=== PATIENT | female | born 2005 | race Caucasian/White ===

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

== ENCOUNTER 2023-05-09 03:51 | Emergency (ER) | payer BC ==
[2023-05-09 04:07] VITALS: RESP 18
--- NOTE | 2023-05-09 04:50 | ED ---
SOB HPI - General Chief Complaint: Shortness of Breath Stated Complaint: SOB COVID+ Time Seen by Provider: 05/09/23 04:38 Source: EMS Mode of arrival: EMS Limitations: no limitations - History of Present Illness Initial Comments: Patient is a 17-year-old woman presenting to have reevaluation for cough, wheezing, dyspnea as well as myalgias. She had been seen at a clinic and found to have COVID-19 infection. She was prescribed medication has not had chance to start these yet. MD Complaint: shortness of breath, cough -: days(s) Quality: aching Consistency: constant Improves With: nothing Worsens With: nothing Associated Symptoms: cough Treatments Prior to Arrival: none - Related Data Home Medications Medication Instructions Recorded Confirmed norgestimate-ethinyl estradioL See Rx Instructions .ROUTE .COMPLEX 09/26/22 09/26/22 [Susana 0.25-0.035 mg Tablet] Previous Rx's Medication Instructions Recorded buPROPion XL [Wellbutrin XL] 150 mg PO DAILY 30 Days #30 tab 09/27/22 Fluconazole [Diflucan] 150 mg PO ONCE #1 tab 05/09/23 Nirmatrelvir/Ritonavir [Paxlovid 1 each PO ONCE #1 pack 05/09/23 2X150 mg-100 mg (Eua)] Allergies Allergy/AdvReac Type Severity Reaction Status Date / Time No Known Allergies Allergy Verified 05/09/23 03:55 Review of Systems ROS Statement: Those systems with pertinent positive or pertinent negative responses have been documented in the HPI. ROS Other: All systems not noted in ROS Statement are negative. Constitutional: Reports: fever, weakness Respiratory: Reports: cough, dyspnea Cardiovascular: Denies: chest pain, palpitations, edema, syncope Gastrointestinal: Denies: abdominal pain, vomiting, diarrhea Genitourinary: Denies: dysuria, hematuria Musculoskeletal: Reports: myalgia Skin: Denies: rash Neurological: Reports: headache. Denies: weakness, numbness, confusion Past Medical History Past Medical History: No Reported History Additional Past Medical History / Comment(s): depression History of Any Multi-Drug Resistant Organisms: None Reported Past Surgical History: Adenoidectomy Past Psychological History: Anxiety, Depression Smoking Status: Never smoker Past Alcohol Use History: None Reported Past Drug Use History: None Reported - Past Family History Father Family Medical History: Hyperlipidemia General Exam Limitations: no limitations General appearance: alert, in no apparent distress Head exam: Present: atraumatic, normocephalic Eye exam: Present: normal appearance. Absent: scleral icterus, conjunctival injection ENT exam: Present: normal oropharynx Neck exam: Present: normal inspection Respiratory exam: Present: wheezes. Absent: respiratory distress, rales, rhonchi, stridor Cardiovascular Exam: Present: regular rate, normal rhythm, normal heart sounds. Absent: systolic murmur, diastolic murmur, rubs, gallop GI/Abdominal exam: Present: soft. Absent: distended, tenderness, guarding, rebound, rigid, mass Extremities exam: Present: normal inspection, normal capillary refill. Absent: pedal edema, calf tenderness Back exam: Present: normal inspection. Absent: CVA tenderness (R), CVA tenderness (L) Neurological exam: Present: alert Skin exam: Present: warm, dry, intact, normal color. Absent: rash Course Vital Signs 05/09/23 05/09/23 05/09/23 03:55 04:59 06:20 Temperature 97.9 F 98.2 F Pulse Rate 89 88 Respiratory 18 18 18 Rate Blood Pressure 114/79 118/83 O2 Sat by Pulse 96 99 Oximetry 05/09/23 07:20 Temperature 98.1 F Pulse Rate 86 Respiratory 18 Rate Blood Pressure 115/73 O2 Sat by Pulse 99 Oximetry Medical Decision Making - Medical Decision Making The patient had chest x-ray which I interpreted as negative for acute infiltrate, pneumothorax, congestive heart failure Was pt. sent in by a medical professional or institution (, PA, DINING ROOM ATTENDANT [employer], urgent care, hospital, or custodial...) When possible be specific @ -[No] Did you speak to anyone other than the patient for history (EMS, parent, family, police, friend...)? What history was obtained from this source @ -[No] Did you review nursing and triage notes (agree or disagree)? Why? @ -[I reviewed and agree with nursing and triage notes] Were old charts reviewed (outside hosp., previous admission, EMS record, old EKG, old radiological studies, urgent care reports/EKG's, custodial records)? Report findings @ -[No old charts were reviewed] Differential Diagnosis (chest pain, altered mental status, abdominal pain women, abdominal pain men, vaginal bleeding, weakness, fever, dyspnea, syncope, headache, dizziness, GI bleed, back pain, seizure, CVA, palpatations, mental health, musculoskeletal)? @ -[Differential Dyspnea: Coronary syndrome, arrhythmia, tamponade, asthma, COPD, pulmonary embolism, pneumonia, pneumothorax, pulmonary effusion, anaphylaxis, diabetic ketoacidosis, flailed chest, pulmonary contusion, diaphragmatic rupture, anemia, neuromuscular, this is not meant to be an all-inclusive list. EKG interpreted by me (3pts min.). @ -[As above] X-rays interpreted by me (1pt min.). @ -[I interpreted as above CT interpreted by me (1pt min.). @ -[None done] U/S interpreted by me (1pt. min.). @ -[None done] What testing was considered but not performed or refused? (CT, X-rays, U/S, labs)? Why? @ -[None] What meds were considered but not given or refused? Why? @ -[None] Did you discuss the management of the patient with other professionals (professionals i.e. , PA, DINING ROOM ATTENDANT [place], lab, RT, psych nurse, social science teacher, registered pharmacist, teacher, geographic area intelligence officer, catalytic case operator)? Give summary @ -[No] Was smoking cessation discussed for >3mins.? @ -[No] Was critical care preformed (if so, how long)? @ -[No] Were there social determinants of health that impacted care today? How? (Homelessness, low income, unemployed, alcoholism, drug addiction, transportation, low edu. Level, literacy, decrease access to med. care, usp, rehab)? @ -[No] Was there de-escalation of care discussed even if they declined (Discuss DNR or withdrawal of care, Hospice)? DNR status @ -[No] What co-morbidities impacted this encounter? (DM, HTN, Smoking, COPD, CAD, Cancer, CVA, ARF, Chemo, Hep., AIDS, mental health diagnosis, sleep apnea, morbid obesity)? @ -[None] Was patient admitted / discharged? Hospital course, mention meds given and route, prescriptions, significant lab abnormalities, going to OR and other pertinent info. @ -[Patient is a 17-year-old woman here to have reevaluation related to cough, wheezing and covid infection. She has not been able to begin the medications prescribed by the clinic yet. Chest x-ray here does not show any acute infiltrate. Discussed appropriate further care and follow-up as well as return parameters. Undiagnosed new problem with uncertain prognosis? @ -[No] Drug Therapy requiring intensive monitoring for toxicity (Heparin, Nitro, Insulin, Cardizem)? @ -[No] Were any procedures done? @ -[No] Diagnosis/symptom? @ -[COVID-19 infection Acute, or Chronic, or Acute on Chronic? @ -[Acute Uncomplicated (without systemic symptoms) or Complicated (systemic symptoms)? @ -[Uncomplicated Side effects of treatment? @ -[No] Exacerbation, Progression, or Severe Exacerbation? @ -[No] Poses a threat to life or bodily function? How? (Chest pain, [place], [place], pneumonia, PE, COPD, DKA, ARF, appy, cholecystitis, CVA, Diverticulitis, Homicidal, Suicidal, threat to staff... and all critical care pts) @ -[No] Disposition Clinical Impression: COVID-19, Candidiasis of female genitalia Disposition: HOME SELF-CARE Condition: Good Instructions (If sedation given, give patient instructions): Yeast Infection (ED), COVID-19 (Coronavirus Disease 2019) (ED) Prescriptions: Fluconazole [Diflucan] 150 mg PO ONCE #1 tab Nirmatrelvir/Ritonavir [Paxlovid 2X150 mg-100 mg (Eua)] 1 each PO ONCE #1 pack Is patient prescribed a controlled substance at d/c from ED?: No Referrals: Eva Oakes MD [Primary Care Provider] - 1-2 days
--- NOTE | 2023-05-09 07:13 | XR ---
EXAM: XR Chest, 2 Views CLINICAL HISTORY: ITS.REASON XR Reason: shortness of breath TECHNIQUE: Frontal and lateral views of the chest. COMPARISON: No relevant prior studies available. FINDINGS: Lungs: Low lung volumes. No consolidation. Pleural space: Unremarkable. No pneumothorax. Heart: No cardiomegaly. Bones/joints: No acute osseous abnormality. IMPRESSION: No acute findings in the chest.
[2023-05-09 07:34] VITALS: BP 115/73; PULSE 86; TEMP 98.1
== END 2023-05-09 07:22 | disposition home or self-care (01) ==
LOC: EC 03:51
DX: U07.1 COVID-19 (principal); B37.31 Acute candidiasis of vulva and vagina; Z86.59 Personal history of other mental and behavioral disorders
CPT/HCPCS: 71046; 99285

== ENCOUNTER → 2023-08-08 | Outpatient (CLI) | payer BC ==
--- NOTE | 2023-08-08 13:19 | USB ---
Reason for Exam: Clinical finding. Findings: The lower section of the breast of the right breast, the axilla of the right breast and the retroareolar of the right breast were scanned. Targeted ultrasound inferior half right breast 3:00 to 9:00 including scanning of the subareolar region and axilla. The patient indicates the 5:00 position as being the site of lump. Scanning along the entire inferior half shows no solid or cystic lesion. Breast tissue does not appear to be particularly dense. No axillary adenopathy. Overall Assessment: Negative, BI-RAD 1 Management: Screening Mammogram of both breasts at age 38. Unless there is an indication to start sooner. Further clinical management of any suspicious palpable abnormality. Patient can continue monthly self breast exams. Results were given to the patient verbally at the time of exam. Electronically signed and approved by: Sue Humphreys M.D. Radiologist
== END | disposition home or self-care (01) ==
LOC: RADUSWWP 12:41
PROVIDERS: ATTEND Family Medicine
DX: N63.14 Unspecified lump in the right breast, lower inner quadrant (principal)

== ENCOUNTER → 2023-11-14 | Outpatient (CLI) | payer BC ==
--- NOTE | 2023-12-11 10:55 | MR ---
EXAMINATION TYPE: MR wrist LT wo con DATE OF EXAM: 11/14/2023 COMPARISON: Radiograph 06/24/2023 HISTORY: 18-year-old female Left wrist pain, swelling and limited movement since Apr 2023 TECHNIQUE: Multiplanar, multisequence images of the left wrist were obtained without IV contrast. FINDINGS: No acute or healing fracture is seen. No abnormal bone marrow replacement or marrow edema. The radiocarpal and distal radial ulnar joint as well as mid carpal compartment appear intact. No sig nificant joint effusion. There is a large multilocular ganglion cyst noted along the dorsal aspect of the wrist/carpus measuri ng 1.5 cm wide by 1.0 cm long by 0.5 cm thick. This seems to show extension from the dorsal aspect of the radioscaphoid joint space. The underlying scapholunate ligament as well as the lunotriquetral ligaments appear intact. An additional tiny 3 mm ganglion cyst noted along the volar aspect of the distal third scaphoid. Minimal anterior subluxation of the ECU with trace tenosynovial fluid. Otherwise, the remaining dorsal extensor and volar flexor tendons appear satisfactory. Normal caliber to the median nerve within the carpal tunnel. The TFC appears intact. IMPRESSION: 1. A sizable multilocular ganglion cyst measuring 1.5 cm along the dorsal aspect of the wrist/carpus. Probably arising from the dorsal aspect of the radioscaphoid joint space. 2. An additional tiny 3 mm ganglion cyst along the volar aspect of the distal third scaphoid. 3. Minimal anterior subluxation of the ECU with trace tenosynovial fluid. If any localizing symptoms here, a mild subsheath sprain can be considered.
== END | disposition home or self-care (01) ==
LOC: RADMRIMAIN 17:00
PROVIDERS: ATTEND Orthopaedic Surgery Hand Surgery
DX: M67.432 Ganglion, left wrist (principal)

== ENCOUNTER 2023-12-05 04:28 | Emergency (ER) | payer BC ==
--- NOTE | 2023-12-05 05:06 | ED ---
General Adult HPI - General Chief complaint: Allergic Reaction Stated complaint: Allergic Reaction Time Seen by Provider: 12/05/23 04:38 Source: patient Mode of arrival: ambulatory Limitations: no limitations - History of Present Illness Initial comments: Dictation was produced using [employer] dictation software. please excuse any grammatical, word or spelling errors. Chief Complaint: 18-year-old female with past medical history of adenomectomy and depression presents to the ER for concerns of allergic reaction to Keflex History of Present Illness: Patient 18-year-old female she states that she is having allergic reaction to Keflex. Patient has never taken Keflex prior to this. She presented to the urgent care 48 hours ago. She took 2 doses of Keflex after being diagnosed with UTI. She states 1 hour after the initial dose she started to feel little itchy. She took the second dose and alone p.m. last night and started to feel throat pain and hives. Patient does not have any allergic reactions to drugs. Patient abdominal pain. No nausea vomiting The ROS documented in this emergency department record has been reviewed and confirmed by me. Those systems with pertinent positive or negative responses have been documented in the HPI. All other systems are other negative and/or noncontributory. - Related Data Home Medications Medication Instructions Recorded Confirmed norgestimate-ethinyl estradioL See Rx Instructions .ROUTE .COMPLEX 09/26/22 09/26/22 [Susana 0.25-0.035 mg Tablet] Previous Rx's Medication Instructions Recorded buPROPion XL [Wellbutrin XL] 150 mg PO DAILY 30 Days #30 tab 09/27/22 Fluconazole [Diflucan] 150 mg PO ONCE #1 tab 05/09/23 Nirmatrelvir/Ritonavir [Paxlovid 1 each PO ONCE #1 pack 05/09/23 2X150 mg-100 mg (Eua)] Sulfamethox-Tmp 800-160Mg [Bactrim 1 tab PO Q12HR 3 Days #6 tab 12/05/23 DS 800-160 mg] Allergies Allergy/AdvReac Type Severity Reaction Status Date / Time cephalexin [From Keflex] Allergy Swelling Verified 12/05/23 04:37 Review of Systems ROS Statement: Those systems with pertinent positive or pertinent negative responses have been documented in the HPI. ROS Other: All systems not noted in ROS Statement are negative. Past Medical History Past Medical History: No Reported History Additional Past Medical History / Comment(s): depression History of Any Multi-Drug Resistant Organisms: None Reported Past Surgical History: Adenoidectomy Past Psychological History: Anxiety, Depression Smoking Status: Never smoker Past Alcohol Use History: None Reported Past Drug Use History: None Reported - Past Family History Father Family Medical History: Hyperlipidemia General Exam - General Exam Comments Initial Comments: PHYSICAL EXAM: General Impression: Alert and oriented x3, not in acute distress HEENT: Normocephalic atraumatic, extra-ocular movements intact, pupils equal and reactive to light bilaterally, mucous membranes moist, periorbital edema bilaterally. Cardiovascular: Heart regular rate and rhythm Chest: Able to complete full sentences, no retractions, no tachypnea, no wheezing Abdomen: abdomen soft, non-tender, non-distended, no organomegaly Musculoskeletal: Pulses present and equal in all extremities, no peripheral medina a Motor: no focal deficits noted Neurological: CN II-XII grossly intact, no focal motor or sensory deficits noted Skin: Intact with no visualized rashes Psych: Normal affect and mood Limitations: no limitations Course Vital Signs 12/05/23 04:35 Temperature 98.2 F Pulse Rate 93 Respiratory 18 Rate Blood Pressure 118/76 O2 Sat by Pulse 96 Oximetry Medical Decision Making - Medical Decision Making Was pt. sent in by a medical professional or institution (LONNIE Hutchison, DYE HOUSE WHEEL OPERATOR, urgent care, hospital, or skilled nursing...) When possible be specific @ -No Did you speak to anyone other than the patient for history (EMS, parent, family, police, friend...)? What history was obtained from this source @ -No Did you review nursing and triage notes (agree or disagree)? Why? @ -I reviewed and agree with nursing and triage notes Were old charts reviewed (outside hosp., previous admission, EMS record, old EKG, old radiological studies, urgent care reports/EKG's, skilled nursing records)? Report findings @ -No old charts were reviewed Differential Diagnosis (chest pain, altered mental status, abdominal pain women, abdominal pain men, vaginal bleeding, musculoskeletal, weakness, fever, dyspnea, syncope, headache, dizziness, GI bleed, back pain, seizure, CVA, palpatations, mental health)? @ -Anaphylaxis, angioedema, dermatitis EKG interpreted by me (3pts min.). @ -None done X-rays interpreted by me (1pt min.). @ -None done CT interpreted by me (1pt min.). @ -None done U/S interpreted by me (1pt. min.). @ -None done What testing was considered but not performed or refused? (CT, X-rays, U/S, labs)? Why? @ -None What meds were considered but not given or refused? Why? @ -None Did you discuss the management of the patient with other professionals (professionals i.e. , PA, DYE HOUSE WHEEL OPERATOR, lab, RT, psych nurse, social work professor, acid wash operator, teacher, ordnance officer, casework specialist)? Give summary @ -No Was smoking cessation discussed for >3mins.? @ -No Was critical care preformed (if so, how long)? @ -No Were there social determinants of health that impacted care today? How? (Homelessness, low income, unemployed, alcoholism, drug addiction, transportation, low edu. Level, literacy, decrease access to med. care, usp, rehab)? @ -No Was there de-escalation of care discussed even if they declined (Discuss DNR or withdrawal of care, Hospice)? DNR status @ -No What co-morbidities impacted this encounter? (DM, HTN, Smoking, COPD, CAD, Cancer, CVA, ARF, Chemo, Hep., AIDS, mental health diagnosis, sleep apnea, morbid obesity)? @ -None Was patient admitted / discharged? Hospital course, mention meds given and route, prescriptions, significant lab abnormalities, going to OR and other pertinent info. @ -18-year-old female presents emergency department for allegedly had allergic reaction to Keflex. Symptoms reported are some throat pain along with ur ticarial rash. Vital signs upon arrival are within acceptable limits. She is well-appearing. Symptoms are concerning for borderline anaphylaxis that she has airway involvement and skin involvement. Risk and benefits were discussed regarding administration of IM epinephrine. Patient is agreeable. Patient also given 10 mg of IV Decadron. Noted at bedside at 7:00 AM. States that her rash appears to feel better however she still complaining of some throat pain. Again patient does not appear to be toxic. She has normal phonation. Patient is agreeable for discharge. Advised follow-up with primary care doctor. Patient antibiotics transitioned to Bactrim. She is told to stop taking Keflex. Undiagnosed new problem with uncertain prognosis? @ -No Drug Therapy requiring intensive monitoring for toxicity (Heparin, Nitro, Insulin, Cardizem)? @ -No Were any procedures done? @ -No Diagnosis/symptom? Acute, or Chronic, or Acute on Chronic? Uncomplicated (without systemic symptoms) or Complicated (systemic symptoms)? @ -Allergic reaction Side effects of treatment? @ -No Exacerbation, Progression, or Severe Exacerbation? @ -No Poses a threat to life or bodily function? How? (Chest pain, [place], [place], pneumonia, PE, COPD, DKA, ARF, appy, cholecystitis, CVA, Diverticulitis, Homicidal, Suicidal, threat to staff... and all critical care pts) @ -No - Lab Data Lab Results 12/05/23 12/05/23 Range/Units 05:17 05:17 Urine Color Yellow Urine Appearance Cloudy H (Clear) Urine pH 6.5 (5.0-8.0) Ur Specific [place] 1.030 (1.001-1.035) Urine Protein 1+ H (Negative) Urine Glucose (UA) Negative (Negative) Urine Ketones Negative (Negative) Urine Blood Negative (Negative) Urine Nitrite Negative (Negative) Urine Bilirubin Negative (Negative) Urine Urobilinogen 2.0 (<2.0) mg/dL Ur Leukocyte Esterase Moderate H (Negative) Urine RBC 2 (0-5) /hpf Urine WBC 30 H (0-5) /hpf Ur Squamous Epith Cells 18 H (0-4) /hpf Urine Bacteria Rare H (None) /hpf Urine Mucus Many H (None) /hpf Urine HCG, Qual Not Detected (Not Detectd) Disposition Clinical Impression: Allergic reaction Disposition: HOME SELF-CARE Condition: Fair Instructions (If sedation given, give patient instructions): General Allergic Reaction (ED) Prescriptions: Sulfamethox-Tmp 800-160Mg [Bactrim DS 800-160 mg] 1 tab PO Q12HR 3 Days #6 tab Is patient prescribed a controlled substance at d/c from ED?: No Referrals: Eva Oakes MD [Primary Care Provider] - 1-2 days Time of Disposition: 07:02
[2023-12-05 06:04] LABS: Appearance,Urine Cloudy (Clear); Bacteria,Urine Rare /hpf; Bilirubin,Urine Negative (Negative); Blood,Urine Negative (Negative); Color,Urine Yellow; Glucose,Urine (UA) Negative (Negative); Ketones,Urine Negative (Negative); Leukocyte Esterase,Urine Moderate (Negative); Mucus,Urine Many /hpf; Nitrite,Urine Negative (Negative); PH, Urine 6.5 (5.0-8.0); Protein,Urine 1+ (Negative); RBC,Urine 2 /hpf (0-5); Squamous Epithelial Cell,Urine 18 /hpf (0-4); WBC,Urine 30 /hpf (0-5)
[2023-12-05] MEDS: DEXAMETHASONE SOD PHOSPHATE 10 MG/ML 1 ML VIAL IV STA (06:17)
[2023-12-05 07:22] VITALS: BP 143/74; PULSE 87; RESP 17; TEMP 98.5
== END 2023-12-05 07:22 | disposition home or self-care (01) ==
LOC: EC 04:28
DX: L29.9 Pruritus, unspecified (principal); T36.1X5A Adverse effect of cephalosporins and other beta-lactam antibiotics, initial encounter; Z88.1 Allergy status to other antibiotic agents
CPT/HCPCS: 81001; 81025; 99283; 96374; 96372; J0171; J1100

== ENCOUNTER 2023-12-05 22:11 | Emergency (ER) | payer BC ==
[2023-12-05 23:03] VITALS: TEMP 98.4
--- NOTE | 2023-12-05 23:56 | ED ---
General Adult HPI - General Source: patient, RN notes reviewed Mode of arrival: ambulatory Limitations: no limitations <Macrina Azul - Last Filed: 12/06/23 00:35> <Lolly Mckinney - Last Filed: 12/06/23 02:25> - General Chief complaint: Allergic Reaction Stated complaint: Hives,itchy throat-seen earlier today Time Seen by Provider: 12/05/23 23:13 - History of Present Illness Initial comments: 18-year-old female presents to the emergency department for evaluation of hives. Patient states that last night she believes she developed an allergic reaction to Keflex and had a swelling to both of her eyes. She also reported symptoms of irritation and feeling of foreign body sensation in her throat at that time. She was administered epinephrine and Decadron at that time. She had improvement in her symptoms after this. She states that she was switched to Bactrim and took her first dose around 1:30 PM today. She has not taken any further doses of this medication. She reports that this evening at around 9 PM she developed itching and a rash to her trunk, bilateral upper and lower extremities. She does state that she took loratadine at around 9:30 PM for this. (Macrina Azul) - Related Data Home Medications Medication Instructions Recorded Confirmed norgestimate-ethinyl estradioL See Rx Instructions .ROUTE .COMPLEX 09/26/22 09/26/22 [Susana 0.25-0.035 mg Tablet] Previous Rx's Medication Instructions Recorded buPROPion XL [Wellbutrin XL] 150 mg PO DAILY 30 Days #30 tab 09/27/22 Fluconazole [Diflucan] 150 mg PO ONCE #1 tab 05/09/23 Nirmatrelvir/Ritonavir [Paxlovid 1 each PO ONCE #1 pack 05/09/23 2X150 mg-100 mg (Eua)] Sulfamethox-Tmp 800-160Mg [Bactrim 1 tab PO Q12HR 3 Days #6 tab 12/05/23 DS 800-160 mg] EPINEPHrine (Auto Inject) [Epipen] 0.3 mg IM ONCE PRN #1 each 12/06/23 Nitrofurantoin Monohyd/M-Cryst 100 mg PO Q12HR 5 Days #10 cap 12/06/23 [Macrobid] Allergies Allergy/AdvReac Type Severity Reaction Status Date / Time cephalexin [From Keflex] Allergy Swelling Verified 12/05/23 23:03 Review of Systems ROS Other: All systems not noted in ROS Statement are negative. <Macrina Azul - Last Filed: 12/06/23 00:35> ROS Other: All systems not noted in ROS Statement are negative. <Lolly Mckinney - Last Filed: 12/06/23 02:25> ROS Statement: Those systems with pertinent positive or pertinent negative responses have been documented in the HPI. Past Medical History Past Medical History: No Reported History Additional Past Medical History / Comment(s): depression History of Any Multi-Drug Resistant Organisms: None Reported Past Surgical History: Adenoidectomy Past Psychological History: Anxiety, Depression Smoking Status: Never smoker Past Alcohol Use History: None Reported Past Drug Use History: None Reported - Past Family History Father Family Medical History: Hyperlipidemia <Macrina Azul - Last Filed: 12/06/23 00:35> General Exam Limitations: no limitations General appearance: alert, in no apparent distress Head exam: Present: atraumatic, normocephalic, normal inspection Eye exam: Present: normal appearance, PERRL, EOMI. Absent: scleral icterus, conjunctival injection, periorbital swelling ENT exam: Present: normal exam, normal oropharynx, mucous membranes moist Neck exam: Present: normal inspection. Absent: tenderness, meningismus, lymphadenopathy Respiratory exam: Present: normal lung sounds bilaterally. Absent: respiratory distress, wheezes, rales, rhonchi, stridor Cardiovascular Exam: Present: regular rate, normal rhythm, normal heart sounds. Absent: systolic murmur, diastolic murmur, rubs, gallop, clicks Extremities exam: Present: normal inspection, full ROM, normal capillary refill. Absent: tenderness, pedal edema, joint swelling, calf tenderness Back exam: Present: normal inspection Neurological exam: Present: alert, oriented X3 Psychiatric exam: Present: normal affect, normal mood Skin exam: Present: warm, dry, intact, erythema. Absent: normal color <Macrina Azul - Last Filed: 12/06/23 00:35> Course <Lolly Mckinney - Last Filed: 12/06/23 02:25> Vital Signs 12/05/23 12/06/23 22:59 02:12 Temperature 98.4 F Pulse Rate 93 90 Respiratory 20 18 Rate Blood Pressure 121/81 116/80 O2 Sat by Pulse 99 98 Oximetry - Reevaluation(s) Reevaluation #1: 12/06/23 01:08 Patient evaluated by myself. Patient sleeping in exam room in no signs of acute distress. Patient reporting improvement of her symptoms and rash has improved. (Lolly Mckinney) Medical Decision Making <Macrina Azul - Last Filed: 12/06/23 00:35> <Lolly Mckinney - Last Filed: 12/06/23 02:25> - Medical Decision Making Was pt. sent in by a medical professional or institution (, PA, ASSOCIATE SALES MANAGER, urgent care, hospital, or senior care...) When possible be specific @ -[No] Did you speak to anyone other than the patient for history (EMS, parent, family, police, friend...)? What history was obtained from this source @ -[No] Did you review nursing and triage notes (agree or disagree)? Why? @ -[I reviewed and agree with nursing and triage notes] Were old charts reviewed (outside hosp., previous admission, EMS record, old EKG, old radiological studies, urgent care reports/EKG's, senior care records)? Report findings @ -[No old charts were reviewed] Differential Diagnosis (chest pain, altered mental status, abdominal pain women, abdominal pain men, vaginal bleeding, weakness, fever, dyspnea, syncope, headache, dizziness, GI bleed, back pain, seizure, CVA, palpatations, mental health, musculoskeletal)? @ -[Differential Dyspnea: Coronary syndrome, arrhythmia, tamponade, asthma, COPD, pulmonary embolism, pneumonia, pneumothorax, pulmonary effusion, anaphylaxis, diabetic ketoacidosis, flailed chest, pulmonary contusion, diaphragmatic rupture, anemia, neuromuscular, this is not meant to be an all-inclusive list. ] EKG interpreted by me (3pts min.). @ -[none] X-rays interpreted by me (1pt min.). @ -[None done] CT interpreted by me (1pt min.). @ -[None done] U/S interpreted by me (1pt. min.). @ -[None done] What testing was considered but not performed or refused? (CT, X-rays, U/S, labs)? Why? @ -[None] What meds were considered but not given or refused? Why? @ -[None] Did you discuss the management of the patient with other professionals (professionals i.e. , LONNIE, ASSOCIATE SALES MANAGER, lab, RT, psych nurse, adoption social worker, knocker off, teacher, homicide squad commanding officer, case fitter)? Give summary @ -[No] Was smoking cessation discussed for >3mins.? @ -[No] Was critical care preformed (if so, how long)? @ -[No] Were there social determinants of health that impacted care today? How? (Homelessness, low income, unemployed, alcoholism, drug addiction, transportation, low edu. Level, literacy, decrease access to med. care, senior care, rehab)? @ -[No] Was there de-escalation of care discussed even if they declined (Discuss DNR or withdrawal of care, Hospice)? DNR status @ -[No] What co-morbidities impacted this encounter? (DM, HTN, Smoking, COPD, CAD, Cancer, CVA, ARF, Chemo, Hep., AIDS, mental health diagnosis, sleep apnea, morbid obesity)? @ -[None] Was patient admitted / discharged? Hospital course, mention meds given and route, prescriptions, significant lab abnormalities, going to OR and other pertinent info. @ -[Patient presented to the emergency department for evaluation of erythematous pruritic rash starting around 9 PM tonight. She was here yesterday for similar symptoms that were worse yesterday. She does note that she had swelling around her eyes at that time. She was switched antibiotic medications today for the first dose around 1:30 PM. IV was started and patient provided IV decadron, benadryl, pepcid. UA pending. Patient signed out to JODI Benitez] Undiagnosed new problem with uncertain prognosis? @ -[No] Drug Therapy requiring intensive monitoring for toxicity (Heparin, Nitro, Insulin, Cardizem)? @ -[No] Were any procedures done? @ -[No] Diagnosis/symptom? @ -[default] Acute, or Chronic, or Acute on Chronic? @ -[default] Uncomplicated (without systemic symptoms) or Complicated (systemic symptoms)? @ -[default] Side effects of treatment? @ -[No] Exacerbation, Progression, or Severe Exacerbation? @ -[No] Poses a threat to life or bodily function? How? (Chest pain, USA, [place], pneumonia, PE, COPD, DKA, ARF, appy, cholecystitis, CVA, Diverticulitis, Homicidal, Suicidal, threat to staff... and all critical care pts) @ -[No] (Macrina Azul) Was patient admitted / discharged? Hospital course, mention meds given and route, prescriptions, significant lab abnormalities, going to OR and other pertinent info. @ -Discharge. 18-year-old female presented to the ER with a chief complaint of allergic reaction. Patient originally seen by Macrina Azul PA-C and signed out to me pending UA results and disposition. In short, patient diagnosed with UTI 2 days prior and started on Keflex. She presented to the ER that night with periorbital edema and throat irritation. Patient received IV medications with improvement and discharged home on Bactrim. Patient presents to the ER today for pruritic rash and throat irritation after taking Bactrim. Patient received IV Decadron, Benadryl and Pepcid today. Upon my evaluation, patient sleeping in exam room in no signs of acute distress. Patient reporting improved symptoms. Urine analysis concerning of infection with occasional bacteria and 8 white blood cells. Urine sent for culture. Patient will be switched to Macrobid. EpiPen also prescribed. Strict return parameters discussed. Advise close follow-up with PCP. Mother verbally expressed understanding and agreement with care plan. Case discussed with ED attending, Dr. Calvillo. Undiagnosed new problem with uncertain prognosis? @ -No Drug Therapy requiring intensive monitoring for toxicity (Heparin, Nitro, Insulin, Cardizem)? @ -No Were any procedures done? @ -No Diagnosis/symptom? @ -Allergic reaction/UTI Acute, or Chronic, or Acute on Chronic? @ -Acute Uncomplicated (without systemic symptoms) or Complicated (systemic symptoms)? @ -Complicated Side effects of treatment? @ -No Exacerbation, Progression, or Severe Exacerbation? @ -No Poses a threat to life or bodily function? How? (Chest pain, [place], [place], pneumonia, PE, COPD, DKA, ARF, appy, cholecystitis, CVA, Diverticulitis, Homicidal, Suicidal, threat to staff... and all critical care pts) @ -Possibly, an allergic reaction can lead to anaphylaxis (Lolly Mckinney) - Lab Data Lab Results 12/06/23 Range/Units 01:05 Urine Color Yellow Urine Appearance Cloudy H (Clear) Urine pH 7.0 (5.0-8.0) Ur Specific [place] 1.029 (1.001-1.035) Urine Protein 1+ H (Negative) Urine Glucose (UA) Negative (Negative) Urine Ketones Negative (Negative) Urine Blood Trace H (Negative) Urine Nitrite Negative (Negative) Urine Bilirubin Negative (Negative) Urine Urobilinogen <2.0 (<2.0) mg/dL Ur Leukocyte Esterase Negative (Negative) Urine RBC 8 H (0-5) /hpf Urine WBC 8 H (0-5) /hpf Ur Squamous Epith Cells 11 H (0-4) /hpf Urine Bacteria Occasional H (None) /hpf Urine Mucus Many H (None) /hpf Disposition <Macrina Azul - Last Filed: 12/06/23 00:35> Is patient prescribed a controlled substance at d/c from ED?: No Time of Disposition: 02:07 <Lolly Mckinney - Last Filed: 12/06/23 02:25> Clinical Impression: Allergic reaction, UTI (urinary tract infection) Disposition: HOME SELF-CARE Condition: Stable Instructions (If sedation given, give patient instructions): Urinary Tract Infection in Women (ED), Anaphylaxis (ED) Additional Instructions: Complete full course of antibiotics. Return to the ER for any new or worsening symptoms. Prescriptions: EPINEPHrine (Auto Inject) [Epipen] 0.3 mg IM ONCE PRN #1 each PRN Reason: Anaphylaxis Nitrofurantoin Monohyd/M-Cryst [Macrobid] 100 mg PO Q12HR 5 Days #10 cap Referrals: Eva Oakes MD [Primary Care Provider] - 1-2 days
[2023-12-06] MEDS: diphenhydrAMINE 50 MG/ML 1 ML VIAL IVP STA (00:03)
[2023-12-06] MEDS: DEXAMETHASONE SOD PHOSPHATE 10 MG/ML 1 ML VIAL IV STA (00:05)
[2023-12-06] MEDS: FAMOTIDINE 20 MG/2 ML VIAL IV STA (00:07)
[2023-12-06 01:30] LABS: Appearance,Urine Cloudy (Clear); Bacteria,Urine Occasional /hpf; Bilirubin,Urine Negative (Negative); Blood,Urine Trace (Negative); Color,Urine Yellow; Glucose,Urine (UA) Negative (Negative); Ketones,Urine Negative (Negative); Leukocyte Esterase,Urine Negative (Negative); Mucus,Urine Many /hpf; Nitrite,Urine Negative (Negative); Protein,Urine 1+ (Negative); RBC,Urine 8 /hpf (0-5); Specific Gravity,Urine 1.029 (1.001-1.035); Squamous Epithelial Cell,Urine 11 /hpf (0-4); Urobilinogen,Urine <2.0 mg/dL (<2.0); WBC,Urine 8 /hpf (0-5)
[2023-12-06 02:13] VITALS: BP 116/80; PULSE 90; RESP 18
== END 2023-12-06 02:19 | disposition home or self-care (01) ==
LOC: EC 22:11
DX: T78.40XA Allergy, unspecified, initial encounter (principal); N39.0 Urinary tract infection, site not specified; Z88.1 Allergy status to other antibiotic agents
CPT/HCPCS: 81001; 99283; 96374; 96375 ×2; J1200; J1100; J3490

== ENCOUNTER 2023-12-06 17:10 | Emergency (ER) | payer BC ==
--- NOTE | 2023-12-06 17:18 | ED ---
General Adult HPI - General Source: RN notes reviewed <MikeyMichael luna - Last Filed: 12/06/23 17:19> <Ligia Aguayo - Last Filed: 12/07/23 12:24> - General Stated complaint: allergic reaction Time Seen by Provider: 12/06/23 17:15 - History of Present Illness Initial comments: Quick note 18-year-old female presented to the ED with a chief complaint of allergic reaction. Patient previously seen here for UTI. Reports that she developed allergic type reaction to Keflex but was switched to Bactrim. However upon taking this started to note more allergic type reactions and was seen here y esterday and switched to Macrobid. States she took her first dose of Macrobid earlier today and shortly after started to develop a foreign body sensation in her throat prompting presentation to the ED for further evaluation. (JosselynMichael) Is a 18-year-old female with no significant past medical history presents emergency department accompanied by her mother with a chief complaint of a possible allergic reaction. Patient states that she was started on Macrobid earlier today and has been having symptoms of a foreign body sensation in her throat and itching of her scalp. Patient's mother is concerned that she is having allergic reaction to this medication. Patient currently is denying dysuria, hematuria Increase in urinary frequency or urgency, fevers, chills. (Ligia Aguayo) - Related Data Home Medications Medication Instructions Recorded Confirmed FLUoxetine HCL [PROzac] 20 mg PO DAILY 12/07/23 12/07/23 busPIRone HCL 15 mg PO BID 12/07/23 12/07/23 norgestimate-ethinyl estradioL 1 tab PO DAILY 12/07/23 12/07/23 [Susana 0.25-0.035 mg Tablet] Previous Rx's Medication Instructions Recorded buPROPion XL [Wellbutrin XL] 150 mg PO DAILY 30 Days #30 tab 09/27/22 EPINEPHrine (Auto Inject) [Epipen] 0.3 mg IM ONCE PRN #1 each 12/06/23 Famotidine [Pepcid] 40 mg PO BID #28 tablet 12/07/23 hydrOXYzine HCL [Atarax] 25 mg PO TID PRN #15 tab 12/07/23 predniSONE 50 mg PO DAILY #5 tab 12/07/23 Allergies Allergy/AdvReac Type Severity Reaction Status Date / Time cephalexin [From Keflex] Allergy Swelling Verified 12/07/23 09:52 nitrofurantoin Allergy Swelling Verified 12/07/23 09:52 [From Macrobid] Penicillins Allergy Anaphylaxis Verified 12/07/23 09:52 Review of Systems ROS Other: All systems not noted in ROS Statement are negative. <Michael rAcos - Last Filed: 12/06/23 17:19> ROS Other: All systems not noted in ROS Statement are negative. <Ligia Aguayo - Last Filed: 12/07/23 12:24> ROS Statement: Those systems with pertinent positive or pertinent negative responses have been documented in the HPI. Past Medical History Past Medical History: No Reported History Additional Past Medical History / Comment(s): depression History of Any Multi-Drug Resistant Organisms: None Reported Past Surgical History: Adenoidectomy Past Psychological History: Anxiety, Depression Smoking Status: Never smoker Past Alcohol Use History: None Reported Past Drug Use History: None Reported - Past Family History Father Family Medical History: Hyperlipidemia <Michael Arcos - Last Filed: 12/06/23 17:19> General Exam <Michael Arcos - Last Filed: 12/06/23 17:19> General appearance: alert, in no apparent distress Head exam: Present: atraumatic, normocephalic, normal inspection Eye exam: Present: normal appearance, PERRL, EOMI. Absent: scleral icterus, conjunctival injection, periorbital swelling ENT exam: Present: normal exam, mucous membranes moist Neck exam: Present: normal inspection. Absent: tenderness, meningismus, lymphadenopathy Respiratory exam: Present: normal lung sounds bilaterally. Absent: respiratory distress, wheezes, rales, rhonchi, stridor Cardiovascular Exam: Present: regular rate, normal rhythm, normal heart sounds. Absent: systolic murmur, diastolic murmur, rubs, gallop, clicks GI/Abdominal exam: Present: soft, normal bowel sounds. Absent: distended, tenderness, guarding, rebound, rigid Extremities exam: Present: normal inspection, full ROM, normal capillary refill. Absent: tenderness, pedal edema, joint swelling, calf tenderness Back exam: Present: normal inspection Neurological exam: Present: alert, oriented X3, CN II-XII intact Psychiatric exam: Present: normal affect, normal mood Skin exam: Present: warm, dry, intact, normal color. Absent: rash <Ligia Aguayo - Last Filed: 12/07/23 12:24> - General Exam Comments Initial Comments: Visual Physical Exam Vital signs reviewed General: Well-appearing, nontoxic, no acute distress. Head: Normocephalic, atraumatic Eyes: PERRLA, EOMI ENT: Airway patent Chest: Nonlabored breathing Skin: No visual rash, normal skin tone Neuro: Alert and oriented 3 Musculoskeletal: No gross abnormalities (Michael Arcos) Course Vital Signs 12/06/23 12/06/23 17:24 19:41 Temperature 98.4 F 98.3 F Pulse Rate 84 79 Respiratory 18 18 Rate Blood Pressure 121/74 122/75 O2 Sat by Pulse 93 L 97 Oximetry Medical Decision Making <Michael Arcos - Last Filed: 12/06/23 17:19> <Ligia Aguayo - Last Filed: 12/07/23 12:24> - Medical Decision Making Quicknote portion performed. Signed Michael Arcos PA-C (Michael Arcos) Was pt. sent in by a medical professional or institution (LONNIE Hutchison, INFORMATION TECHNOLOGY ANALYST, urgent care, hospital, or [facility]...) When possible be specific @ -No Did you speak to anyone other than the patient for history (EMS, parent, family, police, friend...)? What history was obtained from this source @ -No Did you review nursing and triage notes (agree or disagree)? Why? @ -I reviewed and agree with nursing and triage notes Were old charts reviewed (outside hosp., previous admission, EMS record, old EKG, old radiological studies, urgent care reports/EKG's, [facility] records)? Report findings @ -The patient's most previous emergency department visit where she was diagnosed with urinary tract infection, urinary culture was sent and was discharged home with Macrobid. Reviewed the patient's urine culture report which revealed no signs of bacterial growth. Differential Diagnosis (chest pain, altered mental status, abdominal pain women, abdominal pain men, vaginal bleeding, weakness, fever, dyspnea, syncope, headache, dizziness, GI bleed, back pain, seizure, CVA, palpatations, mental health, musculoskeletal)? @ -Differential Abdominal Pain Women: Appendicitis, Cholecystitis, diverticulosis, ischemic bowel, pancreatitis, hepatitis, UTI, gastroenteritis, AAA, incarcerated hernia, bowel obstruction, constipation, inflammatory bowel, hepatitis, peptic ulcer disease, splenic infarction, perforated viscus, vulvitis, ovarian torsion, PID, kidney stone, placenta abruption, this is not meant to be an all-inclusive list EKG interpreted by me (3pts min.). @ -None X-rays interpreted by me (1pt min.). @ -None done CT interpreted by me (1pt min.). @ -None done U/S interpreted by me (1pt. min.). @ -None done What testing was considered but not performed or refused? (CT, X-rays, U/S, labs)? Why? @ -None What meds were considered but not given or refused? Why? @ -None Did you discuss the management of the patient with other professionals (professionals i.e. , PA, INFORMATION TECHNOLOGY ANALYST, lab, RT, psych nurse, health care social worker, visual supervisor, teacher, police commanding officer, family service caseworker)? Give summary @ -No Was smoking cessation discussed for >3mins.? @ -No Was critical care preformed (if so, how long)? @ -No Were there social determinants of health that impacted care today? How? (Homelessness, low income, unemployed, alcoholism, drug addiction, transportation, low edu. Level, literacy, decrease access to med. care, [place] [facility], rehab)? @ -No Was there de-escalation of care discussed even if they declined (Discuss DNR or withdrawal of care, Hospice)? DNR status @ -No What co-morbidities impacted this encounter? (DM, HTN, Smoking, COPD, CAD, Cancer, CVA, ARF, Chemo, Hep., AIDS, mental health diagnosis, sleep apnea, morbid obesity)? @ -None Was patient admitted / discharged? Hospital course, mention meds given and route, prescriptions, significant lab abnormalities, going to OR and other pertinent info. @ -Discharged. 18-year-old female with possible allergic reaction. Patient was originally evaluated as a quick note where urinalysis was completed. On my examination the patient she is in no signs of respiratory distress, vitals are stable upon arrival. Is resting comfortably eating a snack. Complete physical examination with no acute findings. Few patient's urinalysis with no signs of infection. Additionally discussion with patient that urine culture completed shows no growth of bacteria. It is recommended that patient discontinue all use of antibiotics at this time. Recommend that she follows up with her primary care provider next week for further evaluation. All questions were answered at bedside and strict return parameters counseled the patient and she verbalized understanding. Case discussed with Dr. Luo. Undiagnosed new problem with uncertain prognosis? @ -No Drug Therapy requiring intensive monitoring for toxicity (Heparin, Nitro, Insulin, Cardizem)? @ -No Were any procedures done? @ -No Diagnosis/symptom? @ -Drug reaction Acute, or Chronic, or Acute on Chronic? @ -acute Uncomplicated (without systemic symptoms) or Complicated (systemic symptoms)? @ -uncomplicated Side effects of treatment? @ -No Exacerbation, Progression, or Severe Exacerbation? @ -No Poses a threat to life or bodily function? How? (Chest pain, [place], [place], pneumonia, PE, COPD, DKA, ARF, appy, cholecystitis, CVA, Diverticulitis, Homicidal, Suicidal, threat to staff... and all critical care pts) @ -No (Ligia Aguayo) - Lab Data Lab Results 12/06/23 Range/Units 18:05 Urine Color Yellow Urine Appearance Clear (Clear) Urine pH 6.5 (5.0-8.0) Ur Specific [place] 1.025 (1.001-1.035) Urine Protein Trace H (Negative) Urine Glucose (UA) Negative (Negative) Urine Ketones Negative (Negative) Urine Blood Negative (Negative) Urine Nitrite Negative (Negative) Urine Bilirubin Negative (Negative) Urine Urobilinogen <2.0 (<2.0) mg/dL Ur Leukocyte Esterase Negative (Negative) Disposition <Michael Arcos - Last Filed: 12/06/23 17:19> Is patient prescribed a controlled substance at d/c from ED?: No Time of Disposition: 19:20 <Ligia Aguayo - Last Filed: 12/07/23 12:24> Clinical Impression: Medication reaction Disposition: HOME SELF-CARE Condition: Good Instructions (If sedation given, give patient instructions): Antibiotic Medication Allergy (ED) Additional Instructions: Return to the emergency department if your symptoms worsen or do not improve. Referrals: Eva Oakes MD [Primary Care Provider] - 1-2 days
[2023-12-06 17:27] VITALS: RESP 18
[2023-12-06] MEDS: methylPREDNISolone SOD SUCCI 125 MG/2 ML VIAL IV STA (18:49)
[2023-12-06] MEDS: FAMOTIDINE 20 MG/2 ML VIAL IV STA (18:49)
[2023-12-06] MEDS: diphenhydrAMINE 50 MG/ML 1 ML VIAL IVP STA (18:49)
[2023-12-06 19:01] LABS: Appearance,Urine Clear (Clear); Bilirubin,Urine Negative (Negative); Blood,Urine Negative (Negative); Color,Urine Yellow; Glucose,Urine (UA) Negative (Negative); Ketones,Urine Negative (Negative); Leukocyte Esterase,Urine Negative (Negative); Nitrite,Urine Negative (Negative); PH, Urine 6.5 (5.0-8.0); Protein,Urine Trace (Negative); Specific Gravity,Urine 1.025 (1.001-1.035); Urobilinogen,Urine <2.0 mg/dL (<2.0)
[2023-12-06 19:43] VITALS: BP 122/75; PULSE 79; TEMP 98.3
== END 2023-12-06 19:41 | disposition home or self-care (01) ==
LOC: EC 17:10
DX: R09.A2 Foreign body sensation, throat (principal); T37.8X5A Adverse effect of other specified systemic anti-infectives and antiparasitics, initial encounter; Z88.1 Allergy status to other antibiotic agents; Z88.0 Allergy status to penicillin
CPT/HCPCS: 81003; 99284

== ENCOUNTER 2023-12-07 01:08 | Observation (INO) | payer BC ==
--- NOTE | 2023-12-07 01:31 | ED ---
Allergic Reaction HPI - General Chief complaint: Allergic Reaction Stated complaint: allergic reaction Time Seen by Provider: 12/07/23 01:20 Source: family, RN notes reviewed, old records reviewed Mode of arrival: ambulatory Limitations: no limitations - History of Present Illness Initial Comments: This is a 18 female to the ER today. This patient presents today for evaluation regards to significant sore throat with feeling of her throat swelling dif ficulty breathing and lip swelling. Patient has been dealing with an allergic reaction episodically for a few days now with periods of a getting better versus tonight getting worse. Patient comes to the ER with alleged allergic reaction to antibiotic MD Complaint: allergic reaction, facial swelling, other (Lateral lip swelling and facial swelling throat swelling and tongue swelling) -: hour(s) Symptoms: lip swelling, difficulty swallowing, orolingual swelling, hoarseness Severity: severe Treatment Prior to Arrival: none Previous Allergy History: prior ED visit(s) - Related Data Home Medications Medication Instructions Recorded Confirmed FLUoxetine HCL [PROzac] 20 mg PO DAILY 12/07/23 12/07/23 busPIRone HCL 15 mg PO BID 12/07/23 12/07/23 norgestimate-ethinyl estradioL 1 tab PO DAILY 12/07/23 12/07/23 [Susana 0.25-0.035 mg Tablet] Previous Rx's Medication Instructions Recorded buPROPion XL [Wellbutrin XL] 150 mg PO DAILY 30 Days #30 tab 09/27/22 EPINEPHrine (Auto Inject) [Epipen] 0.3 mg IM ONCE PRN #1 each 12/06/23 Famotidine [Pepcid] 40 mg PO BID #28 tablet 12/07/23 hydrOXYzine HCL [Atarax] 25 mg PO TID PRN #15 tab 12/07/23 predniSONE 50 mg PO DAILY #5 tab 12/07/23 Allergies Allergy/AdvReac Type Severity Reaction Status Date / Time cephalexin [From Keflex] Allergy Swelling Verified 12/07/23 09:52 nitrofurantoin Allergy Swelling Verified 12/07/23 09:52 [From Macrobid] Penicillins Allergy Anaphylaxis Verified 12/07/23 09:52 Review of Systems ROS Statement: Those systems with pertinent positive or pertinent negative responses have been documented in the HPI. ROS Other: All systems not noted in ROS Statement are negative. Past Medical History Past Medical History: No Reported History Additional Past Medical History / Comment(s): depression History of Any Multi-Drug Resistant Organisms: None Reported Past Surgical History: Adenoidectomy Past Psychological History: Anxiety, Depression Smoking Status: Never smoker Past Alcohol Use History: None Reported Past Drug Use History: None Reported - Past Family History Father Family Medical History: Hyperlipidemia General Exam - General Exam Comments Initial Comments: No stridor at rest significant lip swelling and tongue swelling Limitations: no limitations General appearance: alert, in no apparent distress Head exam: Present: atraumatic, normocephalic, normal inspection Eye exam: Present: normal appearance, PERRL, EOMI. Absent: scleral icterus, conjunctival injection, periorbital swelling ENT exam: Present: normal exam, mucous membranes moist Neck exam: Present: normal inspection. Absent: tenderness, meningismus, lymphadenopathy Respiratory exam: Present: normal lung sounds bilaterally. Absent: respiratory distress, wheezes, rales, rhonchi, stridor Cardiovascular Exam: Present: regular rate, normal rhythm, normal heart sounds. Absent: systolic murmur, diastolic murmur, rubs, gallop, clicks GI/Abdominal exam: Present: soft, normal bowel sounds. Absent: distended, tenderness, guarding, rebound, rigid Extremities exam: Present: normal inspection, full ROM, normal capillary refill. Absent: tenderness, pedal edema, joint swelling, calf tenderness Back exam: Present: normal inspection Neurological exam: Present: alert, oriented X3, CN II-XII intact Psychiatric exam: Present: normal affect, normal mood Skin exam: Present: warm, dry, intact, normal color. Absent: rash Course Vital Signs 12/07/23 12/07/23 12/07/23 01:14 12:46 18:58 Temperature 98.1 F 97.8 F Pulse Rate 97 89 82 Respiratory 18 16 16 Rate Blood Pressure 118/82 128/72 113/62 O2 Sat by Pulse 98 96 98 Oximetry 12/07/23 12/08/23 12/08/23 21:52 04:27 07:23 Temperature 98.6 F Pulse Rate 69 68 63 Respiratory 16 16 18 Rate Blood Pressure 119/65 114/65 129/78 O2 Sat by Pulse 96 98 98 Oximetry 12/08/23 09:20 Temperature 98.7 F Pulse Rate 68 Respiratory 18 Rate Blood Pressure 126/78 O2 Sat by Pulse 98 Oximetry - Reevaluation(s) Reevaluation #1: 12/07/23 03:20 Records reviewed Reevaluation #2: 12/07/23 03:20 Patient symptoms are improving but still with significant swelling and hoarseness Reevaluation #3: 12/07/23 03:20 Informed of results and questions answered Reevaluation #4: Was pt. sent in by a medical professional or institution (, [facility], [employer], urgent care, hospital, or retirement...) When possible be specific @ -no Did you speak to anyone other than the patient for history (EMS, parent, family, police, friend...)? What history was obtained from this source @ -no Did you review nursing and triage notes (agree or disagree)? Why? @ -agree Are old charts reviewed (outside hosp., previous admission, EMS record, old EKG, old radiological studies, urgent care reports/EKG's, retirement records)? Report findings @ -yes Differential Diagnosis (chest pain, altered mental status, abdominal pain women, abdominal pain men, vaginal bleeding, weakness, fever, dyspnea, syncope, headache, dizziness, GI bleed, back pain, seizure, CVA, palpatations, mental health, musculoskeletal)? @ -prior EKG interpreted by me (3pts min.). @ -no X-rays interpreted by me (1pt min.). @ -no CT interpreted by me (1pt min.). @ -no U/S interpreted by me (1pt. min.). @ -no What testing was considered but not performed or refused? (CT, X-rays, U/S, labs)? Why? @ -none What meds were considered but not given or refused? Why? @ -none Did you discuss the management of the patient with other professionals (professionals i.e. [facility]ONNIE Hutchison, [employer], lab, RT, psych nurse, psychosocial rehabilitation counselor, account leader, teacher, tourist information officer, residential case manager)? Give summary @ -no Was smoking cessation discussed for >3mins.? @ -no Was critical care preformed (if so, how long)? @ -no Were there social determinants of health that impacted care today? How? (Homelessness, low income, unemployed, alcoholism, drug addiction, transportation, low edu. Level, literacy, decrease access to med. care, fdc, rehab)? @ -none Was there de-escalation of care discussed even if they declined (Discuss DNR or withdrawal of care, Hospice)? DNR status @ -no What co-morbidities impacted this encounter? (DM, HTN, Smoking, COPD, CAD, Cancer, CVA, ARF, Chemo, Hep., AIDS, mental health diagnosis, sleep apnea, morbid obesity)? @ -none Was patient admitted / discharged? Hospital course, mention meds given and route, prescriptions, significant lab abnormalities, going to OR and other pertinent info. @ - 18 female will be admitted for allergic reaction medication induced allergi c reaction with hypersensitivity including lip swelling some stridor hoarseness and tongue swelling Admitted Undiagnosed new problem with uncertain prognosis? @ -no Drug Therapy requiring intensive monitoring for toxicity (Heparin, Nitro, Insulin, Cardizem)? @ -no Were any procedures done? @ -no Diagnosis/symptom? @ -Allergic reaction anaphylaxis Acute, or Chronic, or Acute on Chronic? @ -Acute Uncomplicated (without systemic symptoms) or Complicated (systemic symptoms)? @ -Complicated Side effects of treatment? @ -no Exacerbation, Progression, or Severe Exacerbation? @ -exacerbation Poses a threat to life or bodily function? How? (Chest pain, [place], [place], pneumonia, PE, COPD, DKA, ARF, appy, cholecystitis, CVA, Diverticulitis, Homicidal, Suicidal, threat to staff... and all critical care pts) @ -yes severe allergic reaction - Consultations Consultation #1: Sound to admit this patient Medical Decision Making - Medical Decision Making 18 female will be admitted for allergic reaction medication induced allergic reaction with hypersensitivity including lip swelling some stridor hoarseness and tongue swelling - Lab Data Result diagrams: 12/08/23 06:47 12/08/23 06:47 Disposition Clinical Impression: Allergic reaction to drug, Angioedema Disposition: ADMITTED IP TO THIS HOSP Condition: Good Is patient prescribed a controlled substance at d/c from ED?: No Time of Disposition: 02:00
[2023-12-07] MEDS: DEXAMETHASONE SOD PHOSPHATE 10 MG/ML 1 ML VIAL IVP STA (01:40)
[2023-12-07] MEDS: FAMOTIDINE 20 MG/2 ML VIAL IV STA (01:42)
[2023-12-07] MEDS: diphenhydrAMINE 50 MG/ML 1 ML VIAL IVP STA (01:44)
[2023-12-07] MEDS: SODIUM CHLORIDE 0.9% 500 ML 500 ML IV STA (01:48)
[2023-12-07] MEDS: methylPREDNISolone SOD SUCCIN 250 MG in SODIUM CHLORIDE 0.9% 100 ML IVPB ONE (02:05)
[2023-12-07] MEDS: predniSONE 20 MG TAB PO STA (02:20)
[2023-12-07] MEDS: hydrOXYzine HCL 25 MG TAB PO STA (02:21)
[2023-12-07] MEDS ORDERED: NALOXONE 0.4 MG/ML 1 ML VIAL IV PRN (03:13)
[2023-12-07 03:41] LABS: ALT 21 U/L (4-34); AST 18 U/L (14-36); African American GFR (CKD) >90 (>60 ml/min/1.73 sqM); Albumin 3.7 g/dL (3.5-5.0); Alkaline Phosphatase 60 U/L (38-126); Anion Gap 10 mmol/L; Blood Urea Nitrogen 13 mg/dL (7-17); Calcium 9.1 mg/dL (8.4-10.2); Carbon Dioxide 19 mmol/L (22-30); Chloride 110 mmol/L (98-107); Glucose 117 mg/dL (74-99); Magnesium 1.8 mg/dL (1.6-2.3); Non-African American GFR(CKD) >90 (>60 ml/min/1.73 sqM); Phosphorus 3.5 mg/dL (2.5-4.5); Potassium 3.5 mmol/L (3.5-5.1); Sodium 139 mmol/L (137-145); Total Bilirubin 0.3 mg/dL (0.2-1.3)
[2023-12-07 04:12] LABS: Basophils % (A) 0 %; Eosinophils % (A) 0 %; HCT 37.3 % (34.0-46.0); HGB 11.6 gm/dL (11.4-16.0); Lymphocytes # (A) 2.1 k/uL (1.0-4.8); Lymphocytes % (A) 12 %; MCH 26.5 pg (25.0-35.0); MCHC 31.2 g/dL (31.0-37.0); MCV 85.1 fL (80.0-100.0); Mean Platelet Volume 8.1; Monocytes # (A) 0.5 k/uL (0-1.0); Monocytes % (A) 3 %; Neutrophils # (A) 14.1 k/uL (1.3-7.7); Neutrophils % (A) 84 %; Platelet Count 371 k/uL (150-450); RBC 4.38 m/uL (3.80-5.40); RDW 14.3 % (11.5-15.5); WBC 16.8 k/uL (4.0-11.0)
--- NOTE | 2023-12-07 06:30 | P.HPIM ---
History of Present Illness H&P Date: 12/07/23 Chief Complaint: Allergic reaction 18-year-old female no significant past medical history Patient coming in for follow-up on her allergic reaction symptoms that is been getting worse. Patient was diagnosed with UTI as an outpatient she was given Keflex after 2 doses patient noticed hives and swollen lips for which she came into the ED she was having a rash hives itching she was given medications in the ED and was discharged on different antibiotics for presumed UTI this time she was given Bactrim. However patient came back after taking 1 dose of Bactrim as her symptoms worsen she was again diagnosed with allergic reaction she was given medications in the ED to help with her allergy symptoms and then was discharged again this time with Macrobid. Today patient presents again with swollen lips sore throat concerning for allergic reaction specifically angioedema no hives no rash on the skin this time. Patient was admitted for observation she was given steroids Benadryl and Pepcid in the ED Patient mother indicates that multiple allergies to medications runs in the family on the mother side but the patient has never had any allergy test. She is not sure if she had these antibiotics in the past she doubts that the patient had Keflex or Bactrim in the past. Currently the mother indicates she still believes her daughter's lips are still swollen patient herself has no complaints other than sore throat review of systems Pertinent positives as noted in HPI. All other systems were reviewed and are negative on exam Constitutional: No acute distress, conversant, pleasant Eyes: Anicteric sclerae, moist conjunctiva, Pupils equal round reactive to light ENMT: NC/AT Oropharynx clear, no erythema, or exudates. Her lower lip appears to be slightly swollen otherwise the tongue the throat mucous membranes around the eyes all unremarkable Neck: Supple, no masses, or JVD, no stridor No carotid bruits No thyromegaly Lungs: Clear to auscultation, no wheezing Clear to percussion Normal respiratory effort, no accessory muscle use Cardiovascular: Heart regular in rate and rhythm, No murmurs, gallops, or rubs No peripheral edema Abdominal: Soft Nontender, no guarding, rebound or rigidity Abdomen moving with respiration Normoactive bowel sounds Skin: No rash no hives Extremities: No digital cyanosis No clubbing Pedal pulses intact and symmetrical Radial pulses intact and symmetrical No calf tenderness Psychiatric: Alert and oriented to person, place and time Appropriate affect fair judgement Neuro Muscles Strength 5/5 in all 4 extremities Sensation to light touch grossly present throughout Cranial nerves II-XII grossly intact Past Medical History Past Medical History: No Reported History Additional Past Medical History / Comment(s): depression History of Any Multi-Drug Resistant Organisms: None Reported Past Surgical History: Adenoidectomy Past Psychological History: Anxiety, Depression Smoking Status: Never smoker Past Alcohol Use History: None Reported Past Drug Use History: None Reported - Past Family History Father Family Medical History: Hyperlipidemia Medications and Allergies Home Medications Medication Instructions Recorded Confirmed Type norgestimate-ethinyl estradioL See Rx Instructions .ROUTE .COMPLEX 09/26/22 09/26/22 History [Susana 0.25-0.035 mg Tablet] buPROPion XL [Wellbutrin XL] 150 mg PO DAILY 30 Days #30 tab 09/27/22 Rx Fluconazole [Diflucan] 150 mg PO ONCE #1 tab 05/09/23 Rx Nirmatrelvir/Ritonavir [Paxlovid 1 each PO ONCE #1 pack 05/09/23 Rx 2X150 mg-100 mg (Eua)] Sulfamethox-Tmp 800-160Mg [Bactrim 1 tab PO Q12HR 3 Days #6 tab 12/05/23 Rx DS 800-160 mg] EPINEPHrine (Auto Inject) [Epipen] 0.3 mg IM ONCE PRN #1 each 12/06/23 Rx Nitrofurantoin Monohyd/M-Cryst 100 mg PO Q12HR 5 Days #10 cap 12/06/23 Rx [Macrobid] Famotidine [Pepcid] 40 mg PO BID #28 tablet 12/07/23 Rx hydrOXYzine HCL [Atarax] 25 mg PO TID PRN #15 tab 12/07/23 Rx predniSONE 50 mg PO DAILY #5 tab 12/07/23 Rx Allergies Allergy/AdvReac Type Severity Reaction Status Date / Time cephalexin [From Keflex] Allergy Swelling Verified 12/07/23 01:16 nitrofurantoin Allergy Swelling Verified 12/07/23 01:16 [From Macrobid] Penicillins Allergy Anaphylaxis Verified 12/07/23 01:16 Physical Exam Vitals: Vital Signs Temp Pulse Resp BP Pulse Ox 12/07/23 01:14 98.1 F 97 18 118/82 98 Intake and Output 12/06/23 12/06/23 12/07/23 14:59 22:59 06:59 Other: Weight 86.183 kg Results CBC & Chem 7: 12/07/23 03:25 12/07/23 03:25 Labs: Abnormal Lab Results - Last 24 Hours (Table) 12/07/23 12/07/23 Range/Units 03:25 03:25 WBC 16.8 H (4.0-11.0) k/uL Neutrophils # 14.1 H (1.3-7.7) k/uL Chloride 110 H (98-107) mmol/L Carbon Dioxide 19 L (22-30) mmol/L Glucose 117 H (74-99) mg/dL Total Protein 6.0 L (6.3-8.2) g/dL Assessment and Plan Assessment: 18-year-old female no significant past medical history coming in for evaluation of recurrent allergic symptoms of swollen lips, all started after taking Keflex couple days ago for which she started having hives and rash I discussed the case with ED doctor and accepted the admission for observation for recurrent allergic reaction with anticipated length of stay less than 2 midnights Recurrent allergic reaction rule out angioedema Patient received steroids, Benadryl, Pepcid in the ED Continue with as needed Benadryl 25 mg IV push every 6 hours Continue with Pepcid 20 mg IV push twice daily Discontinue Decadron Close monitoring of vital signs IV fluid hydration normal saline 75 cc/h Urine culture from December 03, negative for infection Blood work showing leukocytosis with white count of 16.8 patient afebrile Hemoglobin 11.6 Renal function unremarkable sodium 139 potassium 3.5 BUN 13 creatinine 0.7 Full code DVT prophylaxis heparin subcu 3 times daily
[2023-12-07] MEDS: DEXAMETHASONE SOD PHOSPHATE 4 MG/ML 1 ML VIAL IVP SCH (06:38)
[2023-12-07] MEDS: SODIUM CHLORIDE 0.9% 1,000 ML IV SCH (06:59)
[2023-12-07 08:20] LABS: Appearance,Urine Cloudy (Clear); Bacteria,Urine Rare /hpf; Bilirubin,Urine Negative (Negative); Blood,Urine Negative (Negative); Color,Urine Light Yellow; Glucose,Urine (UA) Negative (Negative); Ketones,Urine Negative (Negative); Leukocyte Esterase,Urine Negative (Negative); Mucus,Urine Many /hpf; Nitrite,Urine Negative (Negative); PH, Urine 6.5 (5.0-8.0); Protein,Urine Trace (Negative); RBC,Urine 1 /hpf (0-5); Specific Gravity,Urine 1.019 (1.001-1.035); Squamous Epithelial Cell,Urine 3 /hpf (0-4); Urobilinogen,Urine <2.0 mg/dL (<2.0); WBC,Urine 4 /hpf (0-5)
[2023-12-07] MEDS: HEPARIN SODIUM,PORCINE 5,000 UNIT/ML 1 ML VIAL SQ SCH (09:13)
[2023-12-07] MEDS: FAMOTIDINE 20 MG/2 ML VIAL IV SCH (09:17)
[2023-12-07] MEDS: diphenhydrAMINE 50 MG/ML 1 ML VIAL IVP PRN (09:47)
--- NOTE | 2023-12-07 15:27 | P.PN ---
Subjective Progress Note Date: 12/07/23 Hospital course: Patient is a 18-year-old female with a past medical history of anxiety and depression who was recently diagnosed with a UTI and started on Keflex. However after 2 doses patient noticed hives and swelling of her lips and came to the ER on 12/05/2023 for treatment of allergic reaction and was later discharged home on a different antibiotic, Bactrim. However patient reports after taking 1 dose of Bactrim her symptoms of allergic reaction and again returned and worsened so she returned to the ER on 12/06/2023 and again discharged home on a different antibiotic with Macrobid. Patient returned to the emergency department today, 12/07/2023 with reports of swollen lips throat concerning for angioedema, but no hives or rash at this time. Patient was admitted to observation unit and given Benadryl, Pepcid, and steroids. Physical exam: Patient seen and fully evaluated at bedside this morning. She continues to have mild swelling to lower lip and reports of a scratchy throat but states improved since arrival to our facility. Vital signs reviewed and stable. General: Nontoxic, no distress and appears stated age. Derm: Skin warm and dry, normal coloration for ethnicity. Head: Atraumatic, normocephalic and symmetric. Eyes: EOMs intact, no lid lag, and anicteric sclera Mouth: no lip lesions, mucus membranes moist. Swelling noted to lower lip. Cardiovascular: regular rate and rhythm with normal S1S2, no murmur, positive posterior tibial pulses bilaterally, and cap refill < 2 seconds. Lungs: Respirations even, regular, and unlabored on room air. Lungs CTA bilaterally, no rhonchi, no rales, no wheezing, and no accessory muscle usage. Abdominal: soft, nontender to palpation, no guarding, no appreciable organomegaly Ext: ROM intact. No gross muscle atrophy, no edema, no contractures Neuro: Speech clear, face symmetrical and CN II-XII grossly intact with no noted focal neuro deficits Psych: Alert and oriented to person, place, time, and situation. Appropriate and pleasant affect. Assessment and Plan of Care: Recurrent allergic reaction rule out angioedema -Patient received steroids, Benadryl, Pepcid in the ED -Continue with as needed Benadryl 25 mg IV push every 6 hours -Continue with Pepcid 20 mg IV push twice daily -Telemetry monitoring. -Close monitoring of vital signs -IV fluid hydration normal saline 75 cc/h. Data and imaging reviewed: -Vital Signs reviewed. Blood pressure 128/72, heart rate 89, respiratory rate 16, temp 98.1 F, and SpO2 of 96% on room air -Labs reviewed. CBC showing leukocytosis with WBC count of 16.8. BMP showing non-anion gap metabolic acidosis with chloride of 110, bicarb of 19, and anion gap of 10. CODE STATUS: Full code DVT prophylaxis: Heparin Anticipated discharge date: Withing the next [address]: Home Patient was seen independently by Nurse Pracitioner. This document was prepared using [employer] dictation software. Please allow for errors in health safety instructor, while rare they do occur. Claude Burch NP rendered care for this patient independently, reviewed the findings and plan as documented in the note above. I did not physically speak with or examine the patient on this date. Objective - Vital Signs Vital signs: Vital Signs Temp 98.1 F 12/07/23 01:14 Pulse 97 12/07/23 01:14 Resp 18 12/07/23 01:14 BP 118/82 12/07/23 01:14 Pulse Ox 98 12/07/23 01:14 FiO2 Intake & Output 12/06/23 12/07/23 12/07/23 18:59 06:59 18:59 Weight 86.183 kg - Labs CBC & Chem 7: 12/08/23 06:47 12/08/23 06:47 Labs: Abnormal Lab Results - Last 24 Hours (Table) 12/07/23 12/07/23 12/07/23 Range/Units 03:25 03:25 07:55 WBC 16.8 H (4.0-11.0) k/uL Neutrophils # 14.1 H (1.3-7.7) k/uL Chloride 110 H (98-107) mmol/L Carbon Dioxide 19 L (22-30) mmol/L Glucose 117 H (74-99) mg/dL Total Protein 6.0 L (6.3-8.2) g/dL Urine Appearance Cloudy H (Clear) Urine Protein Trace H (Negative) Urine Bacteria Rare H (None) /hpf Urine Mucus Many H (None) /hpf
[2023-12-08 07:25] VITALS: RESP 18
[2023-12-08 09:21] VITALS: BP 126/78; PULSE 68; TEMP 98.7
[2023-12-08 10:47] LABS: HCT 38.1 % (37.2-46.3); HGB 11.6 g/dL (12.0-15.0); MCH 26.4 pg (27.0-32.0); MCHC 30.4 g/dL (32.0-37.0); MCV 86.8 FL (80.0-97.0); Mean Platelet Volume 11.3 FL (9.5-12.2); NRBC Per 100 WBC 0 X 10*3/uL (0.00-0.01); Platelet Count 309 X 10*3/uL (140-440); RBC 4.39 X 10*6/uL (4.10-5.20); RDW 14.5 % (11.5-14.5); WBC 12.91 X 10*3/uL (4.50-10.00)
[2023-12-08 11:02] LABS: Magnesium 1.8 mg/dL (1.5-2.4)
[2023-12-08 11:05] LABS: ALT 25 U/L (8-44); AST 23 U/L (13-35); Albumin/Globulin Ratio 1.74 Ratio (1.60-3.17); Alkaline Phosphatase 53 U/L (41-126); BUN/Creat Ratio 10.75 Ratio (12.00-20.00); Blood Urea Nitrogen 8.6 mg/dL (9.0-27.0); Calcium 9.1 mg/dL (8.7-10.3); Chloride 106 mmol/L (96-109); Globulin 2.3 g/dL (1.6-3.3); Glucose 91 mg/dL (70-110); Sodium 141 mmol/L (135-145); Total Bilirubin <0.2 mg/dL (0.3-1.2); Total Protein 6.3 g/dL (6.2-8.2)
--- NOTE | 2023-12-08 15:37 | P.DS ---
Providers Date of admission: 12/07/23 03:13 Expected date of discharge: 12/08/23 Attending physician: Daniel Rosado MD [facility]: Discharge Diagnosis: Recurrent allergic reactions, concerning for development of angioedema. Patient received steroids, placed on Pepcid, Benadryl, and was monitored closely for 24- hours. She had full resolution of swelling in her lips and tightness in her throat. She had no further episodes of hives or skin rashes. Patient being discharged home on Pepcid 40 mg twice daily, prednisone 50 mg daily x 5 days, and Atarax 25 mg 3 times daily as needed. Patient has EpiPen at home and is being instructed to follow-up outpatient with her PCP in 1 to 2 days and with bioinformatics support specialist, Dr. Joey Higginbotham in 1 week to undergo allergy testing. Anxiety and depression. Patient regimen with Wellbutrin 150 mg daily, Prozac 20 mg daily, and BuSpar 15 mg twice daily. Hospital course: Patient is a 18-year-old female with a past medical history of anxiety and depression who was recently diagnosed with a UTI and started on Keflex. However after 2 doses patient noticed hives and swelling of her lips and came to the ER on 12/05/2023 for treatment of allergic reaction and was later discharged home on a different antibiotic, Bactrim. However patient reports after taking 1 dose of Bactrim her symptoms of allergic reaction and again returned and worsened so she returned to the ER on 12/06/2023 and again discharged home on a different antibiotic with Macrobid. Patient returned to the emergency department today, 12/07/2023 with reports of swollen lips throat concerning for angioedema, but no hives or rash at this time. Patient was admitted to observation unit under our services for continued close monitoring.. Recurrent allergic reactions, concerning for development of angioedema. Patient received steroids, placed on Pepcid, Benadryl, and was monitored closely for 24-hours. She had full resolution of swelling in her lips and tightness in her throat. She had no further episodes of hives or skin rashes. Patient being discharged home on Pepcid 40 mg twice daily, prednisone 50 mg daily x 5 days, and Atarax 25 mg 3 times daily as needed. Patient has EpiPen at home and is being instructed to follow-up outpatient with her PCP in 1 to 2 days and with bioinformatics support specialist, Dr. Joey Higginbotham in 1 week to undergo allergy testing. Physical exam: Vital signs reviewed and stable. General: Nontoxic, no distress and appears stated age. Derm: Skin warm and dry, normal coloration for ethnicity. Head: Atraumatic, normocephalic and symmetric. Eyes: EOMs intact, no lid lag, and anicteric sclera Mouth: no lip lesions, mucus membranes moist. Cardiovascular: regular rate and rhythm with normal S1S2, no murmur, positive posterior tibial pulses bilaterally, and cap refill < 2 seconds. Lungs: Respirations even, regular, and unlabored on room air. Lungs CTA bilaterally, no rhonchi, no rales, no wheezing, and no accessory muscle usage. Abdominal: soft, nontender to palpation, no guarding, no appreciable organomegaly Ext: ROM intact. No gross muscle atrophy, no edema, no contractures Neuro: Speech clear, face symmetrical and CN II-XII grossly intact with no noted focal neuro deficits Psych: Alert and oriented to person, place, time, and situation. Appropriate and pleasant affect. A total of 31 minutes of time were spent preparing this complex discharge summary. Pt was discharged on at 8:29 AM. Patient was seen independently by Nurse Practitioner. This document was prepared using [employer] dictation software. Please allow for errors in well service floorperson while rare they do occur. Claude Burch NP rendered care for this patient independently, reviewed the findings and plan as documented in the note above. I did not physically speak with or examine the patient on this date. Patient Condition at Discharge: Good Plan - Discharge Summary New Discharge Prescriptions: New Famotidine [Pepcid] 40 mg PO BID #28 tablet predniSONE 50 mg PO DAILY #5 tab hydrOXYzine HCL [Atarax] 25 mg PO TID PRN #15 tab PRN Reason: Itching Continue FLUoxetine HCL [PROzac] 20 mg PO DAILY norgestimate-ethinyl estradioL [Susana 0.25-0.035 mg Tablet] 1 tab PO DAILY buPROPion XL [Wellbutrin XL] 150 mg PO DAILY 30 Days #30 tab EPINEPHrine (Auto Inject) [Epipen] 0.3 mg IM ONCE PRN #1 each PRN Reason: Anaphylaxis busPIRone HCL 15 mg PO BID Discharge Medication List buPROPion XL [Wellbutrin XL] 150 mg PO DAILY 30 Days #30 tab 09/27/22 [Rx] EPINEPHrine (Auto Inject) [Epipen] 0.3 mg IM ONCE PRN #1 each 12/06/23 [Rx] FLUoxetine HCL [PROzac] 20 mg PO DAILY 12/07/23 [History] Famotidine [Pepcid] 40 mg PO BID #28 tablet 12/07/23 [Rx] busPIRone HCL 15 mg PO BID 12/07/23 [History] hydrOXYzine HCL [Atarax] 25 mg PO TID PRN #15 tab 12/07/23 [Rx] norgestimate-ethinyl estradioL [Susana 0.25-0.035 mg Tablet] 1 tab PO DAILY 12/07/23 [History] predniSONE 50 mg PO DAILY #5 tab 12/07/23 [Rx] Follow up Appointment(s)/Referral(s): Eva Oakes MD [Primary Care Provider] - 1-2 days Víctor Higginbotham MD [STAFF PHYSICIAN] - 1 Week (Will need to call first thing Friday to schedule an appointment for allergy testing. Office is only open on Tuesdays/Wednesdays/Fridays. ) Patient Instructions/Handouts: Anaphylaxis (ED), Angioedema (ED) Discharge Disposition: HOME SELF-CARE
== END 2023-12-08 12:01 | disposition home or self-care (01) ==
LOC: EC 01:08 → 6NMEDSUR 03:13
PROVIDERS: ADMIT Internal Medicine; ATTEND Internal Medicine
DX: T78.3XXA Angioneurotic edema, initial encounter (principal); D72.829 Elevated white blood cell count, unspecified; F32.A Depression, unspecified; R13.10 Dysphagia, unspecified; Z79.899 Other long term (current) drug therapy
CPT/HCPCS: 96376 ×2; 96361; 96365; 96375; 99285; 80053 ×2; 83735 ×2; 84100; 85025; 85027; 81001; G0378 ×2; L0120; L3670; J1200; J1100; J3490; J7512; J2919